=== PATIENT | male | born 2000 | race Caucasian/White ===

== ENCOUNTER 2021-12-12 21:41 | Emergency (ER) | payer MEDICAID, SELFPAY ==
[2021-12-12 21:55] VITALS: BP 131/92; PULSE 87; RESP 18; TEMP 37; O2SAT 96; BMI 32.3
--- NOTE | 2021-12-12 22:03 | XRR_ITS ---
PROCEDURE INFORMATION: Exam: XR Left Foot Exam date and time: 12/12/2021 10:07 PM Age: 21 years old Clinical indication: Patient HX: C/O pain to left foot. Mild bruising to mid metatarsal area. ; Additional info: Injury TECHNIQUE: Imaging protocol: XR Left foot. Views: 3 or more views. COMPARISON: No relevant prior studies available. FINDINGS: Bones/joints: Thickened nail on the great toe, most likely fungal infection. Soft tissues: Normal. XR/XR foot LT min 3V* [id number] IMPRESSION: No acute finding.
--- NOTE | 2021-12-12 22:05 | ED_ITS ---
HPI - Extremity Problem General: Chief complaint: Extremity Injury, Lower Stated complaint: Lft foot pain, swelling, bruising Time Seen by Provider: 12/12/21 22:04 Source: patient Mode of arrival: ambulatory Limitations: no limitations History of Present Illness: 21-year-old male who states that states family threw a close hamper with laundry and at him and hit the top of his left foot. States this happened yesterday has been having some pain in that foot since then. States pain is a 2 out of 10 has been able ambulate denies any ankle pain. Denies any other injuries. Associated symptoms: Deny chest pain, fever(s) or rash Review of Systems Const: Denies: fever(s), chills, body aches or change in appetite Eyes: Denies: blurry vision or eye discomfort ENMT: Denies: throat pain or dental pain Card: Denies: chest pain Resp: Denies: dyspnea GI: Denies: abdominal pain, nausea, vomiting or diarrhea : Denies: dysuria Musc: Reports: extremity pain Skin/Breast: Denies: rash Neuro: Denies: headache(s) Psych: Denies: depression Avery/Lymph: Denies: easy bruising All/Imm: Denies: urticaria PFSH ED PFSH: Medical History (Updated 12/12/21 @ 22:09 by Kian Fields MD) No pertinent past medical history Social History (Updated 12/12/21 @ 22:07 by Kian Fields MD) Substance/Drug Use: never Physical Exam Const: COMMON NORMALS: no acute distress, patient oriented x3 and healthy appearing HENMT: COMMON NORMALS: normocephalic and atraumatic HEAD & SCALP: normocephalic and atraumatic Eye: COMMON NORMALS: Equal, round and reactive pupils present and EOMs intact bilaterally PUPIL: Yes Equal, round and reactive pupils present Neck/C-Spine: COMMON NORMALS: full ROM and supple Chest: COMMONS NORMALS: normal inspection of the chest and normal palpation of entire chest wall Resp: COMMON NORMALS: normal respiratory effort, No retractions, No use of accessory muscles and clear to auscultation bilaterally AUSCULTATION: clear to auscultation bilaterally Cardio: COMMON NORMALS: regular rate, regular rhythm and No murmurs present (Cardio) RATE: regular rate RHYTHM: regular rhythm GI: COMMON NORMALS: Normal to inspection, nondistended, normoactive bowel sounds present, Soft to palpation, non-tender and no masses PALPATION: Yes Soft to palpation Extremity: COMMON NORMALS: full ROM NARRATIVE EXTREMITY EXAM: Slight contusion to dorsum of left foot mild tenderness to touch no obvious deformity Neuro: COMMON NORMALS: patient oriented x3, moves all extremities and no focal motor deficits Psych: COMMON NORMALS: mental status grossly normal, Normal thought process present and cooperative THOUGHT PROCESS: Normal thought process present Skin: COMMON NORMALS: no rashes or lesions noted and no wounds GENERAL SKIN EXAM: no rashes or lesions noted Course Vital Signs: Vital signs: Vital Signs Temperature 98.6 F 12/12/21 21:55 Pulse Rate 87 12/12/21 21:55 Respiratory Rate 18 12/12/21 21:55 Blood Pressure 131/92 12/12/21 21:55 Pulse Oximetry 96 12/12/21 21:55 MDM - Extremity (Nontraumatic) Medical Decision Making Patient presents here with a foot contusion no signs of fracture we will place him on Naprosyn he is to ice and rest he is stable for discharge return if worsening. Discharge Plan Discharge Patient Disposition: Home Clinical Impression: Contusion of left foot Qualifiers: Encounter type: initial encounter Qualified Code(s): S90.32XA - Contusion of left foot, initial encounter Prescriptions: New Naprosyn 500 mg tablet 500 mg PO BID PRN (Reason: pain) Qty: 20 0RF Discharge Orders: Discharge ED (Routine); Ordered 12/12/21 Ordered By: Kian Fields Discharge Diet: Advance as tolerated and Resume prior tube feeds Patient Instructions: Foot Contusion (ED) Coding Level of Care Code ED Housekeeping Cleaner for Chg Fwd Exam Comprehensive
[2021-12-12] MEDS: naproxen 500 mg Tablet PO (22:13)
== END 2021-12-12 22:21 | disposition home or self-care (01) ==
PROVIDERS: Emergency Provider Emergency Medicine
DX: S90.32XA Contusion of left foot, initial encounter (principal); W22.8XXA Striking against or struck by other objects, initial encounter
CPT/HCPCS: 73630; 99283

== ENCOUNTER → 2022-05-14 16:13 | Outpatient (BNVA) | payer MEDICAID, SELFPAY | PROVIDERS: Visit Provider Registered Nurse Neonatal Intensive Care | DX: R50.9 Fever, unspecified (principal); J02.9 Acute pharyngitis, unspecified; Z20.822 Contact with and (suspected) exposure to COVID-19 | CPT/HCPCS: 87071; 87426; 87880 ==

== ENCOUNTER 2023-03-14 19:26 | Emergency (ER) | payer MEDICAID, SELFPAY ==
[2023-03-14 19:38] VITALS: BP 131/84; PULSE 96; RESP 16; TEMP 36.8; O2SAT 93
[2023-03-14 21:05] VITALS: BP 138/88; PULSE 100; TEMP 37.2; O2SAT 94
--- NOTE | 2023-03-14 21:10 | ED_ITS ---
HPI - Extremity Problem General: Chief complaint: Extremity Injury, Lower Stated complaint: Left toenail ripped off Time Seen by Provider: 03/14/23 21:10 History of Present Illness: 22-year-old male patient comes in today for complaints of partial avulsion of the left great toe nail. Patient was rolling over in bed when his nail became caught in the sheet causing it to be tore off. Patient is concerned about the nail being caught again and would like it removed. Patient appears nontoxic. Patient reports no pain or fever. Nail is thickened and appears infected with the fungus or injured. Partial avulsion of the nail is noted. Associated symptoms: Deny chest pain, fever(s) or rash Review of Systems Const: Denies: fever(s) Card: Denies: chest pain Resp: Denies: dyspnea GI: Denies: vomiting : Denies: difficulty urinating Musc: Denies: extremity pain Skin/Breast: Denies: rash Neuro: Denies: numbness in extremities PFS ED PFSH: Medical History (Updated 03/14/23 @ 21:31 by TREY Newman) No pertinent past medical history Psychiatric care Social History (Updated 12/12/21 @ 22:07 by Kian Fields MD) Smoking and tobacco status: current every day smoker Substance/Drug Use: never Physical Exam Const: COMMON NORMALS: alert HENMT: COMMON NORMALS: normocephalic HEAD & SCALP: normocephalic MOUTH: Normal oral and palatal mucosa present Neck/C-Spine: COMMON NORMALS: full ROM Chest: COMMONS NORMALS: normal palpation of entire chest wall Resp: COMMON NORMALS: clear to auscultation bilaterally AUSCULTATION: clear to auscultation bilaterally Cardio: COMMON NORMALS: regular rate RATE: regular rate Back/Pelvis: COMMON NORMALS: thoracic and lumbar spine normal to inspection Extremity: LEFT LOWER EXTREMITY: Yes foot & digits (Partial avulsion of toenail) Neuro: SENSORIUM/ORIENTATION: Yes alert Skin: NAILS: dystrophic (Great toe, partially avulsed) Procedures Nail Trephination Location (toes): first digit Sterile prep: chlorhexidine Method of drainage: other (Nail removed with forceps) Patient tolerated procedure: well Complications: other (Nail removed without difficulty, no bleeding, patient tolerated well.) Course Vital Signs: Vital signs: Vital Signs Temperature 99.0 F 03/14/23 21:05 Pulse Rate 100 03/14/23 21:05 Respiratory Rate 16 03/14/23 19:38 Blood Pressure 138/88 03/14/23 21:05 Pulse Oximetry 94 03/14/23 21:05 Oxygen Delivery Me thod Room Air 03/14/23 21:05 MDM - Extremity (Nontraumatic) Medical Decision Making 22-year-old male patient comes in with partial avulsion of the left great toenail. Under digital block the nail was removed without difficulty. It was only being retained by the lateral aspect of the toe. No bleeding was noted. Vaseline gauze was put on postprocedure. Postprocedure care and instructions were given to patient. Differential diagnosis includes but not limited to subungual hematoma, nail avulsion, fracture, contusion. No sign of serious injury was noted. Reviewed care and instructions with patient. Patient reported understanding agreed to plan. Discharge Plan Discharge Patient Disposition: Home Clinical Impression: Nail avulsion, toe Qualifiers: Encounter type: initial encounter Qualified Code(s): S91.209A - Unspecified open wound of unspecified toe(s) with damage to nail, initial encounter Condition: Stable Prescriptions: No Action divalproex [Depakote ER] 500 mg tablet extended release 24 hr 500 mg PO .HS Qty: 30 2RF fluoxetine 20 mg capsule 20 mg PO DAILY Qty: 30 2RF olanzapine [Zyprexa] 5 mg tablet 5 mg PO BID Qty: 60 2RF Discharge Orders: Discharge ED (Routine); Ordered 03/14/23 Ordered By: Tam Fung Referrals: Parag Vicente MD [Primary Care Provider] - Discharge Diet: Usual diet Discharge Activity: Increase activity as tolerated Patient Instructions: Nail Avulsion (ED), Nail Removal (ED) Activity Restrictions/Additional Instructions: Leave the initial dressing on for 2 days. If the dressing becomes wet or soiled change the dressing. Apply ointment such as Vaseline gauze or [id number] bacitracin ointment and redress with a Band-Aid or gauze. Follow-up with primary care for further instructions. Return to ED for new concerns. Coding Level of Care Code ED Grey Stock Recorder for Melanie Ceron
[2023-03-14 21:57] VITALS: BP 138/88; PULSE 100; RESP 16; TEMP 37.2; O2SAT 94
== END 2023-03-14 21:59 | disposition home or self-care (01) ==
PROVIDERS: Emergency Provider Nurse Practitioner Family; PCP Family Medicine
DX: S91.202A Unspecified open wound of left great toe with damage to nail, initial encounter (principal); X58.XXXA Exposure to other specified factors, initial encounter; F17.210 Nicotine dependence, cigarettes, uncomplicated
CPT/HCPCS: 99282

== ENCOUNTER → 2023-06-12 13:21 | Outpatient (BNVA) | payer MEDICAID, SELFPAY | PROVIDERS: PCP Family Medicine; Visit Provider Psychiatry & Neurology Psychiatry | DX: F84.0 Autistic disorder (principal); F41.1 Generalized anxiety disorder; F43.12 Post-traumatic stress disorder, chronic; F33.2 Major depressive disorder, recurrent severe without psychotic features; Z79.899 Other long term (current) drug therapy; F17.210 Nicotine dependence, cigarettes, uncomplicated | CPT/HCPCS: 80053; 80061; 80164; 83036; 84443; 85025 ==

== ENCOUNTER → 2023-07-10 10:24 | Outpatient (BNVA) | payer MEDICAID, SELFPAY | PROVIDERS: PCP Family Medicine; Visit Provider Psychiatry & Neurology Psychiatry | DX: F84.0 Autistic disorder (principal); Z79.899 Other long term (current) drug therapy | CPT/HCPCS: 80053 ==

== ENCOUNTER → 2024-10-16 16:10 | Outpatient (BNVA) | payer SELFPAY | PROVIDERS: PCP Family Medicine; Visit Provider Emergency Medicine | DX: B34.9 Viral infection, unspecified (principal) | CPT/HCPCS: 87426 ==